=== PATIENT | male | born 1940 | race Caucasian/White ===

== ENCOUNTER 2016-08-11 06:19 | Day surgery (SDC) | payer MEDICARE, BC ==
--- NOTE | ~2016-08-11 | OP ---
Record Of Operation [facility] [address] [place]. [address] NAME: VINICIUS HERCULES : 40 STATUS : REG [facility] PAT#: [id number] AGE: 76 ADM/REG DATE : 08/11/16 MR#: [id number] REPORT SERV DATE: 08/11/16 DICTATED BY: VEE TONY JR. DATE: 08/11/16 REPORT STATUS : Draft TRANSCRIBED BY: EMILIA DATE: 08/11/16 DATE OF PROCEDURE: 08/11/2016 PREOPERATIVE DIAGNOSES: Lung cancer, status post previous right upper lobectomy and left lower lobectomy with positive mediastinal lymph nodes, status post adjuvant chemotherapy, enlarging left paratracheal and subcarinal lymph nodes, rule out persistent disease. POSTOPERATIVE DIAGNOSIS: No evidence of malignancy. NAME OF OPERATION: Diagnostic and therapeutic bronchoscopy, endobronchial ultrasound with multiple fine-needle aspirations, erika stations 4L and 7. SURGEON: Vee Tony Jr., M.D. RESIDENT SURGEON: Travis Edmondson. ANESTHESIA: General endotracheal. FINDINGS: Patient noted to have no endobronchial lesions. The right upper lobe bronchial stump and left lower lobe bronchial stump were well healed. On endobronchial ultrasound, there were benign appearing lymph nodes in the left paratracheal and subcarinal regions. Multiple fine-needle aspirations demonstrated benign lymphocytes. There was no evidence of malignant cells. Final pathology is pending. DETAILS OF OPERATION: After adequate general anesthesia, the patient was intubated with an LMA. Diagnostic therapeutic bronchoscopy was performed with the above findings noted. Endobronchial ultrasound was then performed with ultrasound portion demonstrating large but benign appearing architecture of the nodes in the left paratracheal and subcarinal space. Multiple fine-needle aspirations were performed, confirmed benign lymphocytes. Final pathology is pending. Adequate hemostasis was obtained. The procedure was terminated at this point. The patient tolerated the procedure well and taken back to the recovery room in stable condition. ERICA/EMILIA Vee Tony Jr., M.D. / [id number] CC: Alan Higuera Jr., M.D. Karson Murguia MD
[~2016-08-11 06:19] MED LIST: ATEN25 PO; FLOMAX4 PO; IBU800 PO; L10 PO; LEVOTHYROXIN25 MCG PO; LIBRAX PO; LIPOTRIAD1 CAP PO; METPAKSF PO; NEXIUM40 PO; NIACIN100 PO; PCET PO; RAPAFLO8 MG PO; SURBEX-T1 TAB PO; UNISOM25 MG PO; VITAMIN D31000 UNIT PO
[2016-08-11 06:41] LABS: BASOPHILS 0.3 %; BASOPHILS ABSOLUTE 0.02 10/3/uL (0.0-0.16); EOSINOPHILS 8.7 %; EOSINOPHILS ABSOLUTE 0.55 10/3/uL (0.0-0.53); HEMATOCRIT 40.2 % (40.0-51.0); HEMOGLOBIN 13.1 g/dL (13.6-17.8); IMMATURE GRANULOCYTES 0.2 %; IMMATURE GRANULOCYTES ABSOLUTE 0.01 10/3/uL (0.0-0.11); LYMPHOCYTES 34.8 %; MEAN CORPUS HGB CONC 32.6 g/dL (32.0-36.0); MEAN CORPUSCULAR HEMOGLOB 33.2 pg (26.0-34.0); MEAN PLATELET VOLUME 8.9 fL (9.2-13.0); MONOCYTES 7.1 %; MONOCYTES ABSOLUTE 0.45 10/3/uL (0.21-1.20); NEUTROPHILS 48.9 %; PLATELET COUNT 161 10/3/uL (150-400); RBC DISTRIBUTION WIDTH 13.5 % (12.0-16.0); RED CELL COUNT 3.95 10/6/uL (4.7-6.1); WHITE BLOOD CELLS 6.3 10/3/uL (4.5-10.5)
[2016-08-11 06:42] LABS: MANUAL DIFF NO %; MEAN CORPUSCULAR VOLUME 101.8 fL (80-100)
[2016-08-11 06:52] LABS: BUN (BLOOD UREA NITROGEN) 19 MG/DL (6-23); CALCIUM, SERUM 8.5 MG/DL (8.5-10.4); CHLORIDE, SERUM 107 MMOL/L (96-112); CO2 (CARBON DIOXIDE) 28 MMOL/L (24-34); CREATININE 0.99 MG/DL (0.70-1.30); GFR AFRICAN AMERICAN 85 ML/MIN (>=60); GFR NON AFRICAN AMERICAN 74 ML/MIN (>=60); GLUCOSE, SERUM 100 MG/DL (60-99); POTASSIUM, SERUM 3.9 MMOL/L (3.5-5.3); SODIUM, SERUM 143 MMOL/L (135-148)
[2016-09-23] MEDS ORDERED: LIPOTRIAD1 CAP PO (09:17)
[2016-09-29] MEDS ORDERED: PCET PO (11:08)
[2016-09-29] MEDS ORDERED: NEUR100 PO (11:08)
== END 2016-08-11 23:59 | disposition home or self-care (01) ==
LOC: DMU 06:19
PROVIDERS: Anesthesiology; Thoracic Surgery (Cardiothoracic Vascular Surgery)
PROC: 07B74ZX Excision of Thorax Lymphatic, Percutaneous Endoscopic Approach, Diagnostic (ICD-10-PCS; principal; 2016-08-11 08:00)
DX: R59.9 Enlarged lymph nodes, unspecified (principal); I10 Essential (primary) hypertension; I48.91 Unspecified atrial fibrillation; E03.9 Hypothyroidism, unspecified; H91.93 Unspecified hearing loss, bilateral; K58.9 Irritable bowel syndrome, unspecified; K63.5 Polyp of colon; K57.90 Diverticulosis of intestine, part unspecified, without perforation or abscess without bleeding; K64.9 Unspecified hemorrhoids; M19.011 Primary osteoarthritis, right shoulder; Z85.118 Personal history of other malignant neoplasm of bronchus and lung; Z87.891 Personal history of nicotine dependence; Z92.21 Personal history of antineoplastic chemotherapy; Z96.1 Presence of intraocular lens; Z98.41 Cataract extraction status, right eye; Z98.42 Cataract extraction status, left eye; Z97.4 Presence of external hearing-aid; Z90.2 Acquired absence of lung [part of]; Z90.89 Acquired absence of other organs; Z98.890 Other specified postprocedural states; Z79.899 Other long term (current) drug therapy
CPT/HCPCS: 80048; 85025; 88172; 88173; 88305; 93005; A9270-GY; C1725; J2370; J2405; J2710; J3010

== ENCOUNTER 2016-08-30 11:55 | Emergency (ER) | payer MEDICARE, BC ==
[2016-08-30 11:09] LABS: BASOPHILS 0.2 %; BASOPHILS ABSOLUTE 0.02 10/3/uL (0.0-0.16); EOSINOPHILS 2.1 %; HEMOGLOBIN 12.4 g/dL (13.6-17.8); IMMATURE GRANULOCYTES 0.3 %; IMMATURE GRANULOCYTES ABSOLUTE 0.03 10/3/uL (0.0-0.11); LYMPHOCYTES 15.1 %; LYMPHOCYTES ABSOLUTE 1.46 10/3/uL (0.67-4.30); MEAN CORPUS HGB CONC 33.5 g/dL (32.0-36.0); MEAN CORPUSCULAR HEMOGLOB 32.5 pg (26.0-34.0); MEAN PLATELET VOLUME 9.1 fL (9.2-13.0); MONOCYTES 7.3 %; MONOCYTES ABSOLUTE 0.71 10/3/uL (0.21-1.20); NEUTROPHILS ABSOLUTE 7.25 10/3/uL (2.02-8.40); PLATELET COUNT 156 10/3/uL (150-400); RBC DISTRIBUTION WIDTH 12.7 % (12.0-16.0); RED CELL COUNT 3.81 10/6/uL (4.7-6.1)
[2016-08-30 11:10] LABS: MANUAL DIFF NO %; MEAN CORPUSCULAR VOLUME 97.1 fL (80-100); WHITE BLOOD CELLS 9.7 10/3/uL (4.5-10.5)
[2016-08-30 11:17] LABS: INTERNATIONAL NORMAL RATI 1.2 UNITS (-); PARTIAL THROMBO TIME 44.5 SEC (22.5-37.2); PROTIME (NOT ORD) 14.8 SEC (12.0-14.5)
[2016-08-30 11:22] LABS: BUN (BLOOD UREA NITROGEN) 20 MG/DL (6-23); CALCIUM, SERUM 8.8 MG/DL (8.5-10.4); CHEST PAIN PROFILE TAT 0 Hrs 18 Mins; CHLORIDE, SERUM 102 MMOL/L (96-112); CO2 (CARBON DIOXIDE) 27 MMOL/L (24-34); CREATININE 0.96 MG/DL (0.70-1.30); GFR AFRICAN AMERICAN 89 ML/MIN (>=60); GFR NON AFRICAN AMERICAN 76 ML/MIN (>=60); GLUCOSE, SERUM 98 MG/DL (60-99); POTASSIUM, SERUM 4.1 MMOL/L (3.5-5.3); SODIUM, SERUM 138 MMOL/L (135-148); TROPONIN I <0.02 NG/ML (<0.05)
[2016-09-23] MEDS ORDERED: LIPOTRIAD1 CAP PO (09:17)
[2016-09-29] MEDS ORDERED: PCET PO (11:08)
[2016-09-29] MEDS ORDERED: NEUR100 PO (11:08)
== END 2016-08-30 16:32 | disposition home or self-care (01) ==
LOC: ER 11:55
PROVIDERS: Emergency Medicine
DX: J90 Pleural effusion, not elsewhere classified (principal); C34.90 Malignant neoplasm of unspecified part of unspecified bronchus or lung; I10 Essential (primary) hypertension; K21.9 Gastro-esophageal reflux disease without esophagitis; Z87.891 Personal history of nicotine dependence; Z79.899 Other long term (current) drug therapy
CPT/HCPCS: 71010; 71275; 80048; 83735; 84484; 85025; 85610; 85730; 93005; 99285; Q9967

== ENCOUNTER 2016-10-07 15:41 | Inpatient (IN) | payer MEDICARE, BC ==
--- NOTE | ~2016-10-07 | DS ---
Discharge Summary [place] [id number] [place]. [address] NAME: VINICIUS HERCULES : 40 STATUS : DIS IN PAT#: [id number] AGE: 76 ADM/REG DATE : 10/07/16 MR#: [id number] REPORT SERV DATE: 10/09/16 DICTATED BY: TIBURCIO MATAMOROS DATE: 10/09/16 REPORT STATUS : Draft TRANSCRIBED BY: EMILIA DATE: 10/09/16 ADMISSION DATE: 10/07/2016 DISCHARGE DATE: 10/09/2016 DISCHARGE DIAGNOSES: 1. Symptomatic sick sinus syndrome, status post pacemaker, 10/08/2016. 2. Paroxysmal atrial fibrillation. 3. Lung cancer, status post lobectomy. 4. Hypertension. 5. Hypothyroidism. 6. Presyncope. 7. History of pleural effusion, recurrent, status post left PleurX cath. 8. Benign prostatic hyperplasia. DISCHARGE MEDICATIONS: Include, 1. Amiodarone 200 mg p.o. b.i.d. 2. Librax one cap p.o. b.i.d. 3. Vitamin D 2000 units p.o. daily. 4. Synthroid 25 mcg p.o. daily. 5. Lopressor 25 mg p.o. b.i.d. 6. Nexium 40 mg p.o. b.i.d. 7. Metamucil packet p.o. daily. 8. Xarelto 20 mg p.o. at supper, start 10/10/2016 at 1800 hours. 9. Flomax 0.4 mg in the evening. 10.Vitamin B complex cap one p.o. daily. 11.Ultram 50 mg one tab p.o. q.6 hours p.r.n. 12.Percocet 5/325 tab p.o. q.4 hours p.r.n. DISPOSITION AND FOLLOWUP: The patient is medically stable for discharge. Follow up with primary care physician in one week. Follow up with Cardiology as directed. Follow up results of echo by Cardiology on an outpatient followup. HISTORY AND PHYSICAL: Per initial assessment. DISCHARGE VITALS: Temperature 97, heart rate 89, respiratory rate 18, blood pressure 113/77, O2 saturation 93 on room air. DISCHARGE LABS: WBC of 4.7, hemoglobin 12.3, hematocrit 36.6, platelets 231. Sodium 141, potassium 4.2, chloride 107, bicarb 26, BUN 15, creatinine 0.89, calcium 9, magnesium 2.1. IMAGING: Chest x-ray, impression: 1. Interval placement of left chest pacemaker device. No postprocedure pneumothorax seen. 2. Low lung volumes with mild bibasilar atelectasis and small left pleural fluid. 3. Right chest Port-A-Cath device and left PleurX chest tube in stable position. HOSPITAL COURSE: This is a 76-year-old man with past medical history of non-small cell lung Discharge Summary [address] [place]. 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 The patient on admission was found to have atrial fibrillation with multiple pauses up to 5 seconds associated with presyncope. The patient was evaluated by Cardiology, Electrophysiology, recommendations for pacemaker. The patient did have a pacemaker done, 10/08/2016. No complications. Placed on amiodarone and metoprolol and instructed to start Xarelto on 10/10/2016. Chest x-ray without any evidence of pneumothorax. The patient to get an echo prior to discharge. Instructed to take all medications as directed above. Followup with primary care physician in one week. Follow up with Cardiology as directed. Further management to be done as an outpatient. Note: Total time for discharge planning 35 minutes. BINU/EMILIA Charles Hollis MD / [id number] CC: SoAlan Garcia Jr., M.D.
--- NOTE | ~2016-10-07 | CN ---
Consultation Report [facility] [address] [place]. [address] NAME: VINICIUS HERCULES : 40 STATUS : ADM IN PAT#: [id number] AGE: 76 ADM/REG DATE : 10/07/16 MR#: [id number] REPORT SERV DATE: 10/08/16 DICTATED BY: WAQAS SAMANIEGO DATE: 10/07/16 REPORT STATUS : Draft TRANSCRIBED BY: MODKorina DATE: 10/07/16 CARDIOLOGY CONSULTATION DATE OF CONSULTATION: PRIMARY ENGINEER SERGEANT: Dr. Buck. REASON FOR CONSULTATION: Atrial fibrillation/flutter and near syncope. HISTORY PRESENT ILLNESS: Mr. Hercules is a 76-year-old male with neuroendocrine lung cancer, status post right upper lobectomy with Dr. Tony, x-ray therapy, chemotherapy, and a recent left PleurX catheter placement for a large pleural effusion who presented to the ER with three episodes of near syncope earlier today. He states that he slept poorly last night and awoke this morning "in a fog." He took his morning atenolol. Shortly, thereafter, he started having episodes of near syncope where he describes a flushing sensation and transient vision changes before spontaneous resolution of the symptoms. Due to the recurrent episodes, he presented to the ER for further evaluation where he was found to be in atrial fibrillation/flutter, now rapid ventricular response at 115 beats per minute. While on telemetry monitoring during his evaluation, he would have several three to five second pauses. He was given IV fluids. Since then he has converted back to sinus rhythm at 85 beats per minutes and otherwise remains hemodynamically stable with no recurrent symptoms. He has had no recent chest pain/angina. Shortness of breath is at baseline and overall improved since his left PleurX catheter placement for left pleural effusion drainage. He denies orthopnea or PND. He has had no lower extremity edema. REVIEW OF SYSTEMS: Pertinent positives and negatives as outlined above, all was negative. PAST MEDICAL HISTORY: 1. Neuroendocrine lung cancer, status post lobectomy, x-ray therapy and chemotherapy. 2. Left pleural effusion, status post PleurX catheter. 3. History of atypical chest pain. 4. BPH. CURRENT MEDICATIONS: 1. Atenolol 25 mg daily. 2. Librax cap twice daily. 3. Vitamin B supplementation. 4. Vitamin B12 supplementation. 5. Percocet p.r.n. 6. Synthroid 25 mcg daily. 7. Nexium 40 mg twice daily. 8. Flomax 0.4 mg daily. Consultation Report [place] [address] [place]. [address] NAME: VINICIUS HERCULES : 40 STATUS : ADM IN PAT#: [id number] AGE: 76 ADM/REG DATE : 10/07/16 MR#: [id number] REPORT SERV DATE: 10/08/16 DICTATED BY: WAQAS SAMANIEGO DATE: 10/07/16 REPORT STATUS : Draft TRANSCRIBED BY: EMILIA DATE: 10/07/16 ALLERGIES: NO KNOWN DRUG ALLERGIES. SOCIAL HISTORY: He has a history of remote tobacco use. He does not consume alcohol or use illegal drugs. FAMILY HISTORY: No significant family history of premature CAD, unexplained cardiomyopathy, or sudden . PHYSICAL EXAMINATION: VITALS: Temp afebrile, Pulse is 85, Respirations 16, BP 110/60. GENERAL: PSYCH: Euthymic, normal affect. GENERAL: Well-developed male who is currently in no acute distress. HEENT: Sclerae anicteric, mucous membranes moist and without lesions. NECK: No jugular venous distention. No hepatojugular reflux, carotid upstrokes 2+ and symmetric, there are no carotid or subclavian bruit. LUNGS: Mildly decreased breath sounds throughout, more notable at the left base, with no wheezes or crackles. CARDIOVASCULAR: Regular with distant S1 and S2. No audible S3. No audible murmurs. No parasternal lift. PMI is not palpable. ABDOMEN: Obese, soft, and nontender. Bowel sounds positive and normoactive. PULSES: Radial and dorsalis pedis pulses 2+ and symmetric. EXTREMITIES: Warm and without edema. SKIN: No clubbing or cyanosis, no rashes or lesions. IMPRESSION: 1. Near syncope. 2. Sick sinus syndrome. 3. Atrial fibrillation/flutter with rapid ventricular response. 4. Neuroendocrine lung cancer, status post lobectomy, XRT, and chemotherapy. 5. Pleural effusion status post left PleurX catheter. PLAN: Mr. Hercules presented with symptoms of near syncope in the setting of atrial fibrillation, RVR, and pauses of three to five seconds following morning atenolol dose. He is now back in sinus rhythm after IV fluids and hemodynamically stable. Recommend telemetry for admission at this time. Keep n.p.o. after midnight and hold a.m. Eliquis for EP evaluation and questionable permanent pacemaker placement tomorrow. Echocardiogram to assess LV function and cardiac dimensions. Continue other home medications as prescribed. Critical care medicine has been made aware, and he will be transferred to the floor for recurrent arrhythmias. AEA/MODL Consultation Report [address] [place]. [address] NAME: VINICIUS HERCULES : 40 STATUS : ADM IN [facility]#: [id number] AGE: 76 ADM/REG DATE : 10/07/16 MR#: [id number] REPORT SERV DATE: 10/08/16 DICTATED BY: WAQAS SAMANIEGO. DATE: 10/07/16 REPORT STATUS : Draft TRANSCRIBED BY: EMILIA DATE: 10/07/16 Waqas Samaniego M.D. / [id number] CC: Alan Ngo Jr., M.D.
--- NOTE | ~2016-10-07 | CN ---
Consultation Report [facility] [address] [place]. [address] NAME: CHRISTIANO HERCULES : 40 STATUS : ADM IN [facility]#: [id number] AGE: 76 ADM/REG DATE : 10/07/16 MR#: [id number] REPORT SERV DATE: 10/08/16 DICTATED BY: ARI LEVINE DATE: 10/08/16 REPORT STATUS : Draft TRANSCRIBED BY: EMILIA DATE: 10/08/16 CARDIOLOGY CONSULTATION DATE OF CONSULTATION: REFERRING PROVIDER: Jf Buck M.D. INDICATIONS: Presyncope and sick sinus syndrome. HISTORY OF PRESENT ILLNESS: Mr. Christiano Hercules is a 76-year-old man with a history of non- small cell lung cancer reported as adenocarcinoma and neuroendocrine carcinoma. He had issues with recurrent left pleural effusion and has a PleurX drain. He had multiple presyncopal events yesterday and presented to the emergency room. He was found to have atrial fibrillation with multiple pauses up to 5 seconds associated with presyncope. He subsequently reverted back to sinus rhythm. Electrophysiology is consulted. He denies chest pain. He does have some chronic shortness of breath. No active orthopnea or PND. He has had several liters drained from his left chest. PAST MEDICAL HISTORY: Lung carcinoma, BPH, hypertension, hypothyroidism. PRESENT MEDICATIONS: Librax, vitamin D, Synthroid, Protonix, psyllium, Flomax, B complex vitamin. The patient was receiving a heparin infusion overnight, heparin stopped 07:00 a.m. this morning. ALLERGIES: NONE KNOWN. FAMILY HISTORY: Notable for siblings with malignancy. SOCIAL HISTORY: , two children, and quit smoking in 2003, but a long smoking history. 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 REVIEW OF SYSTEMS: As per the HPI. Otherwise, all other review of systems negative. PHYSICAL EXAMINATION: VITAL SIGNS: Blood pressure 114/67, pulse 90, respiratory rate is 14. GENERAL: Appears stated age, no distress. EYES: Sclerae anicteric, no arcus senilis. MOUTH: Oral mucosa moist, lips acyanotic. NECK: Jugular venous pressure normal, no carotid bruits. LUNGS: Diminished breath sounds in the left base. CARDIAC: Regular rate and rhythm, no murmurs, gallops or rubs. ABDOMEN: Soft, nondistended, nontender. EXTREMITIES: No edema. Consultation Report [facility] [address] [place]. [address] NAME: CHRISTIANO HERCULES : 40 STATUS : ADM IN PAT#: [id number] AGE: 76 ADM/REG DATE : 10/07/16 MR#: [id number] REPORT SERV DATE: 10/08/16 DICTATED BY: ARI LEVINE DATE: 10/08/16 REPORT STATUS : Draft TRANSCRIBED BY: EMILIA DATE: 10/08/16 SKIN: Warm and dry. Right chest Port-A-Cath. NEURO/PSYCH: Alert and oriented, nonfocal, mood appropriate. DATA: Sodium 141, potassium 4.2, creatinine 0.8. White count 4.7, hemoglobin 12.3, platelets 260. Troponin negative x3. TSH 2.5. ECG demonstrates atrial fibrillation, ventricular response, 114 beats per minute. Telemetry demonstrates atrial fibrillation with pauses up to 5 seconds. IMPRESSION: 1. Marked presyncope. 2. Symptomatic sick sinus syndrome. 3. Paroxysmal atrial fibrillation. 4. Lung cancer. 5. Hypertension. 6. Hypothyroidism with normal TSH. RECOMMENDATIONS: Discussed situation with the patient and family. The patient will need implantation of a dual-chamber pacemaker. I have discussed with them the rationale, logistics, and risks of the procedure. Risks include, but not limited to bleeding, infection, vascular complications, myocardial infarction, stroke, failure to place lead, lead dislodgement, pneumothorax. We would consider oral anticoagulation to begin two days after pacemaker implanted. Resume beta bren after pacemaker implanted. NAOMI/EMILIA Ari Levine M.D. / [id number] CC: Alan Ngo Jr., M.D.
--- NOTE | ~2016-10-07 | HP ---
History And Physical [facility] [address] [place]. [address] NAME: VINICIUS HERCULES : 40 STATUS : ADM IN [facility]#: [id number] AGE: 76 ADM/REG DATE : 10/07/16 MR#: [id number] REPORT SERV DATE: 10/07/16 DICTATED BY: JOANNA GRAVES DATE: 10/07/16 REPORT STATUS : Draft TRANSCRIBED BY: MODL DATE: 10/07/16 DATE OF ADMISSION: 10/07/2016 HISTORY OF PRESENT ILLNESS: The patient is a very pleasant 76-year-old male who presented to [facility] after he had several syncopal/presyncopal episodes, started with dizziness and accompanied with hypotension. He had them this morning. reported that at least 15 episodes he had, and on presentation his blood pressure was 86/61, heart rate is 110. He was dizzy and presyncopal. The patient never had similar episodes before. He had this episode since last night and a sensation of being hot accompanied these episodes with some palpitations, and telemetry strip showed pauses up to two to three seconds, and the patient was evaluated in the emergency room by Dr. Bianchi, and he was given normal saline bolus in the emergency room and his blood pressure improved to 110/70, as well as his telemetry improved. Initially, Dr. Bianchi spoke with pigment pusher on-call and they sent a nurse practitioner, and they recommended to keep pacer pads on, this is what Dr. Bianchi told me, and then in conversation with me because of the significant pauses, Dr. Bianchi and me agreed that the patient will need to be in the intensive care unit since there were no IMCU beds. Later on, pigment pusher came to evaluate the patient and since patient became stable and blood pressure was 110/70, and Dr. Sheets okayed patient to be sent to telemetry bed with close supervision, and so he saw the patient even before me seeing the patient and he was okay with telemetry bed. He also recommended the patient to be on a heparin drip and an IV fluid bolus to be given to the patient. The patient now is feeling better. He denies chest pain or shortness of breath. He is not dizzy. PAST MEDICAL HISTORY: Known for history of lung cancer on the left lung, status post lower lobe resection per Dr. Tony, status post chemotherapy and status post radiation therapy, which he completed on 09/27/2016. He also has history of lung cancer on the left lung. In 2004, he had a right upper lobe resection for the lung cancer. Also, the patient has a chronic draining catheter/chest tube, which was placed for recurrent pleural effusion on the right side on the left side per Dr. Tony. The patient also had recent lymph node biopsy per Dr. Tony on the same patient and the lymph node biopsy was negative. The patient denies any other medical problems. He denies any heart problems in the past. No diabetes. REVIEW OF SYSTEMS: All 14-point review of systems done and negative except for what is stated in the history of present illness. PAST SURGICAL HISTORY: Includes this lung surgery and hernia repair, and recent lymph node biopsy by Dr. Tony. HOME MEDICATIONS: Include Tenormin 25 mg a day, Librax one capsule b.i.d., vitamin D3 2000 units daily, Nexium 40 mg daily, levothyroxine 25 mcg a day, oxycodone with acetaminophen one tablet p.o. q.4 hours p.r.n., Metamucil one packet p.o. daily, Flomax 0.4 mg daily, and vitamin B once a day. FAMILY HISTORY: Mother of ovarian cancer. Father from congestive heart failure. History And Physical [address] [address] NAME: VINICIUS HERCULES : 40 STATUS : ADM IN [facility]#: [id number] AGE: 76 ADM/REG DATE : 10/07/16 MR#: [id number] REPORT SERV DATE: 10/07/16 DICTATED BY: JOANNA GRAVES DATE: 10/07/16 REPORT STATUS : Draft TRANSCRIBED BY: EMILIA DATE: 10/07/16 ALLERGIES: NO KNOWN DRUG ALLERGY. SOCIAL HISTORY: He quit smoking in 2003, used to smoke one and a half pack per day. No alcohol. No recreational drug use. PHYSICAL EXAMINATION: GENERAL: A well-nourished, well-developed male, not in acute distress, resting quietly. VITAL SIGNS: Blood pressure 110/70, heart rate in 80s, respiratory rate 14, oxygen saturation was 97 on room air, temperature 97.2. HEENT: Head atraumatic, normocephalic. Conjunctivae clear. Pupils are equal and reactive to light and accommodation. Extraocular muscles are intact. NECK: Supple. Trachea is midline. No supraclavicular or cervical lymphadenopathy. LUNGS: Clear to auscultation bilaterally with slightly decreased respiratory effort. CARDIOVASCULAR: Regular rate and rhythm. Point of maximal impulse not displaced. ABDOMEN: Soft, nontender, nondistended. Positive normoactive bowel sounds. EXTREMITIES: No clubbing, cyanosis, or edema. SKIN: Normal color and turgor. NEUROLOGICAL: He is awake, alert, oriented in time, place, and person. Muscle strength 5/5 bilaterally on upper and lower extremities. LABORATORY RESULTS: White count 4.9, hemoglobin 12.9, hematocrit 38.5, platelet count 289. PTT 37.4, PT 15, INR 1.2. BNP 137.4. Sodium 140, potassium 4.4, chloride 104, carbon dioxide 30, BUN 20, creatinine 1.03. Troponin less than 0.02. Magnesium is 2. Blood sugar 95. BNP was 137.4. Chest x-ray, there are left chest tubes in place with minimal pleural effusion. No significant pneumothorax identified. EKG which was done on 10/07/2016 at 1414 in the emergency room showed atrial flutter with variable AV block with premature ventricular and aberrantly controlled complexes. Telemetry strips show two-second pauses on the telemetry strip, which subsequently resolved, and the patient was in normal sinus rhythm subsequently. This was evaluated by pigment pusher, Dr. Sheets. ASSESSMENT AND PLAN: This is a very pleasant 76-year-old male with a history of lung cancer, status post recent radiation therapy presented with a presyncopal episode and pauses on the telemetry strip. The patient was evaluated by pigment pusher, Dr. Sheets and there was a question if the patient needs to be in the intensive care unit or on the floor. Dr. Sheets after evaluation of the patient decided that the patient will be okay on telemetry bed and discussed this with me, so we will follow Dr. Sheets's recommendations and put the patient on telemetry. We will request [address] Sheets wrote orders to put the patient on heparin drip and give him IV fluid boluses. We will also give him gentle IV fluid hydration. Echocardiogram is ordered. Beta bren discontinued. Patient's troponins will be checked periodically. He is now asymptomatic. The patient will be n.p.o. after midnight and the pigment pusher will give further recommendations. We will also check the patient's TSH. Regarding patient's chest tube which was placed per recommendation of Dr. Tony, we will Dr. Tony to re-evaluate the chest tube. Everything was discussed with the patient and his . History And Physical [address] [address] NAME: VINICIUS HERCULES : 40 STATUS : ADM IN [facility]#: [id number] AGE: 76 ADM/REG DATE : 10/07/16 MR#: [id number] REPORT SERV DATE: 10/07/16 DICTATED BY: JOANNA GRAVES DATE: 10/07/16 REPORT STATUS : Draft TRANSCRIBED BY: MODKorina DATE: 10/07/16 MG/MODKorina Joanna Graves M.D. / [id number] CC: Alna Ngo Jr., M.D. Allen E Atchley, M.D.
[2016-10-07 15:34] LABS: BASOPHILS 0.6 %; BASOPHILS ABSOLUTE 0.03 10/3/uL (0.0-0.16); EOSINOPHILS 4.3 %; EOSINOPHILS ABSOLUTE 0.21 10/3/uL (0.0-0.53); HEMATOCRIT 38.5 % (40.0-51.0); HEMOGLOBIN 12.9 g/dL (13.6-17.8); IMMATURE GRANULOCYTES 0.2 %; IMMATURE GRANULOCYTES ABSOLUTE 0.01 10/3/uL (0.0-0.11); LYMPHOCYTES 13.5 %; LYMPHOCYTES ABSOLUTE 0.66 10/3/uL (0.67-4.30); MEAN CORPUS HGB CONC 33.5 g/dL (32.0-36.0); MEAN CORPUSCULAR HEMOGLOB 30.5 pg (26.0-34.0); MEAN PLATELET VOLUME 8.8 fL (9.2-13.0); MONOCYTES 12.9 %; MONOCYTES ABSOLUTE 0.63 10/3/uL (0.21-1.20); NEUTROPHILS 68.5 %; NEUTROPHILS ABSOLUTE 3.36 10/3/uL (2.02-8.40); PLATELET COUNT 289 10/3/uL (150-400); RBC DISTRIBUTION WIDTH 13.1 % (12.0-16.0); RED CELL COUNT 4.23 10/6/uL (4.7-6.1)
[2016-10-07 15:35] LABS: ER CBC TAT 0 Hrs 05 Mins; MANUAL DIFF NO %; WHITE BLOOD CELLS 4.9 10/3/uL (4.5-10.5)
[2016-10-07 15:41] LABS: PARTIAL THROMBO TIME 37.4 SEC (22.5-37.2)
[~2016-10-07 15:41] MED LIST changes: +NEUR100 PO
[2016-10-07 15:42] LABS: INTERNATIONAL NORMAL RATI 1.2 UNITS (-)
[2016-10-07 15:50] LABS: BUN (BLOOD UREA NITROGEN) 20 MG/DL (6-23); CALCIUM, SERUM 9.2 MG/DL (8.5-10.4); CHEST PAIN PROFILE TAT 0 Hrs 20 Mins; CHLORIDE, SERUM 104 MMOL/L (96-112); CO2 (CARBON DIOXIDE) 30 MMOL/L (24-34); CREATININE 1.03 MG/DL (0.70-1.30); GFR AFRICAN AMERICAN 81 ML/MIN (>=60); GFR NON AFRICAN AMERICAN 70 ML/MIN (>=60); GLUCOSE, SERUM 95 MG/DL (60-99); POTASSIUM, SERUM 4.4 MMOL/L (3.5-5.3); SODIUM, SERUM 140 MMOL/L (135-148); TROPONIN I <0.02 NG/ML (<0.05)
[2016-10-07] MEDS ORDERED: FLOMAX4 PO (17:02)
[2016-10-07] MEDS ORDERED: PCET PO (17:02)
[2016-10-07] MEDS ORDERED: NEXIUM40 PO (17:02)
[2016-10-07] MEDS ORDERED: LEVOTHYROXIN25 MCG PO (17:02)
[2016-10-07] MEDS ORDERED: ATEN25 PO (17:02)
[2016-10-07] MEDS ORDERED: VITAMIN D31000 UNIT PO (17:03)
[2016-10-07] MEDS ORDERED: METPAKSF PO (17:03)
[2016-10-07] MEDS ORDERED: LIBRAX PO (17:03)
[2016-10-07] MEDS ORDERED: LIPOTRIAD1 CAP PO (17:03)
[2016-10-08 01:29] LABS: BASOPHILS 0.4 %; BASOPHILS ABSOLUTE 0.02 10/3/uL (0.0-0.16); EOSINOPHILS ABSOLUTE 0.28 10/3/uL (0.0-0.53); HEMATOCRIT 37.2 % (40.0-51.0); HEMOGLOBIN 12.3 g/dL (13.6-17.8); IMMATURE GRANULOCYTES 0.4 %; IMMATURE GRANULOCYTES ABSOLUTE 0.02 10/3/uL (0.0-0.11); LYMPHOCYTES 13.6 %; LYMPHOCYTES ABSOLUTE 0.64 10/3/uL (0.67-4.30); MANUAL DIFF NO %; MEAN CORPUS HGB CONC 33.1 g/dL (32.0-36.0); MEAN CORPUSCULAR HEMOGLOB 30.8 pg (26.0-34.0); MEAN CORPUSCULAR VOLUME 93.2 fL (80-100); MEAN PLATELET VOLUME 8.9 fL (9.2-13.0); MONOCYTES 12.4 %; MONOCYTES ABSOLUTE 0.58 10/3/uL (0.21-1.20); NEUTROPHILS 67.2 %; NEUTROPHILS ABSOLUTE 3.15 10/3/uL (2.02-8.40); PLATELET COUNT 260 10/3/uL (150-400); RBC DISTRIBUTION WIDTH 12.8 % (12.0-16.0); RED CELL COUNT 3.99 10/6/uL (4.7-6.1); WHITE BLOOD CELLS 4.7 10/3/uL (4.5-10.5)
[2016-10-08 01:45] LABS: CALCIUM, SERUM 9.2 MG/DL (8.5-10.4); CHLORIDE, SERUM 108 MMOL/L (96-112); CO2 (CARBON DIOXIDE) 30 MMOL/L (24-34); CREATININE 0.88 MG/DL (0.70-1.30); GFR AFRICAN AMERICAN 97 ML/MIN (>=60); GFR NON AFRICAN AMERICAN 83 ML/MIN (>=60); GLUCOSE, SERUM 100 MG/DL (60-99); POTASSIUM, SERUM 4.2 MMOL/L (3.5-5.3); SODIUM, SERUM 141 MMOL/L (135-148)
[2016-10-08 01:47] LABS: BUN (BLOOD UREA NITROGEN) 16 MG/DL (6-23)
[2016-10-08 07:26] LABS: PARTIAL THROMBO TIME 95.7 SEC (22.5-37.2)
[2016-10-08 10:51] LABS: INTERNATIONAL NORMAL RATI 1.3 UNITS (-); PROTIME (NOT ORD) 16.3 SEC (12.0-14.5)
[2016-10-09 06:21] LABS: BASOPHILS 0.6 %; BASOPHILS ABSOLUTE 0.03 10/3/uL (0.0-0.16); EOSINOPHILS 3.6 %; EOSINOPHILS ABSOLUTE 0.17 10/3/uL (0.0-0.53); HEMATOCRIT 36.6 % (40.0-51.0); HEMOGLOBIN 12.3 g/dL (13.6-17.8); IMMATURE GRANULOCYTES 0.2 %; IMMATURE GRANULOCYTES ABSOLUTE 0.01 10/3/uL (0.0-0.11); LYMPHOCYTES 12.1 %; LYMPHOCYTES ABSOLUTE 0.57 10/3/uL (0.67-4.30); MANUAL DIFF NO %; MEAN CORPUS HGB CONC 33.6 g/dL (32.0-36.0); MEAN CORPUSCULAR HEMOGLOB 30.3 pg (26.0-34.0); MEAN CORPUSCULAR VOLUME 90.1 fL (80-100); MEAN PLATELET VOLUME 8.8 fL (9.2-13.0); MONOCYTES 12.7 %; NEUTROPHILS 70.8 %; NEUTROPHILS ABSOLUTE 3.35 10/3/uL (2.02-8.40); PLATELET COUNT 231 10/3/uL (150-400); RBC DISTRIBUTION WIDTH 13.1 % (12.0-16.0); RED CELL COUNT 4.06 10/6/uL (4.7-6.1); WHITE BLOOD CELLS 4.7 10/3/uL (4.5-10.5)
[2016-10-09 06:32] LABS: BUN (BLOOD UREA NITROGEN) 15 MG/DL (6-23); CHLORIDE, SERUM 107 MMOL/L (96-112); CO2 (CARBON DIOXIDE) 26 MMOL/L (24-34); CREATININE 0.89 MG/DL (0.70-1.30); GFR AFRICAN AMERICAN 96 ML/MIN (>=60); GFR NON AFRICAN AMERICAN 83 ML/MIN (>=60); GLUCOSE, SERUM 104 MG/DL (60-99); POTASSIUM, SERUM 4.2 MMOL/L (3.5-5.3); SODIUM, SERUM 141 MMOL/L (135-148)
[2016-10-09] MEDS ORDERED: CORDARONE PO (11:30)
[2016-10-09] MEDS ORDERED: LOP25 PO (11:30)
[2016-10-09] MEDS ORDERED: XARELTO20 MG PO (11:31)
[2016-10-09] MEDS ORDERED: ULTRAM50 PO (11:32)
== END 2016-10-09 13:46 | disposition home or self-care (01) | DRG 243 ==
LOC: ER 15:41 → 5NO 18:45
PROVIDERS: Emergency Medicine; Hospitalist; Internal Medicine
PROC: 0JH606Z Insertion of Pacemaker, Dual Chamber into Chest Subcutaneous Tissue and Fascia, Open Approach (ICD-10-PCS; principal; 2016-10-08)
PROC: 02H63JZ Insertion of Pacemaker Lead into Right Atrium, Percutaneous Approach (ICD-10-PCS; 2016-10-08)
PROC: 02HK3JZ Insertion of Pacemaker Lead into Right Ventricle, Percutaneous Approach (ICD-10-PCS; 2016-10-08)
DX: I49.5 Sick sinus syndrome (principal); I48.92 Unspecified atrial flutter; J90 Pleural effusion, not elsewhere classified; I48.0 Paroxysmal atrial fibrillation; I10 Essential (primary) hypertension; Z85.118 Personal history of other malignant neoplasm of bronchus and lung; E03.9 Hypothyroidism, unspecified; N40.0 Benign prostatic hyperplasia without lower urinary tract symptoms; K21.9 Gastro-esophageal reflux disease without esophagitis
CPT/HCPCS: 33208; 36415; 71010; 80048; 83735; 83880; 84443; 84484; 85025; 85610; 85730; 93005; 94640; 99285; A9270-GY; C1785; C1892; C1898; C8929; J0690; J1742; J2370; J3010; Q9957

== ENCOUNTER 2016-11-02 16:55 | Inpatient (IN) | payer MEDICARE, BC ==
--- NOTE | ~2016-11-02 | DS ---
Discharge Summary [facility] [address] [place]. [address] NAME: VINICIUS HERCULES : 40 STATUS : DIS IN PAT#: [id number] AGE: 76 ADM/REG DATE : 11/02/16 MR#: [id number] REPORT SERV DATE: 11/09/16 DICTATED BY: JEANETTE BOCANEGRA DATE: 11/08/16 REPORT STATUS : Draft TRANSCRIBED BY: MODL DATE: 11/08/16 ADMISSION DATE: 11/02/2016 DISCHARGE DATE: 11/08/2016 ADMISSION DIAGNOSES: Shortness of breath, hypoxemic, healthcare-associated pneumonia, recurrent pleural effusions with paroxysmal atrial fibrillation. DISCHARGE DIAGNOSES: Shortness of breath, hypoxemic, healthcare-associated pneumonia, recurrent pleural effusions with paroxysmal atrial fibrillation, , acute kidney injury, squamous cell lung cancer, acute hypercapnic respiratory failure. HOSPITAL COURSE: The patient was admitted for acute hypoxic respiratory failure thought to be underlying pneumonia. However, the patient had a CT scan, for which Pulmonary Consult Service saw the patient on the 11/03/2016 and the patient is noted to have a history of non- small cell lung cancer in the right upper lobe and is already noted to have a left lower lobe lobectomy. He had progressive ground-glass opacities, for which pneumonia did not seem to clear these infiltrates. There was concern of radiation pneumonitis. However, the patient eventually underwent bronchoscopy for further diagnostic workup and the pathology results shows negative bronchial brushings and lavage. However, the transbronchial lung biopsies are still pending. Upon my arrival today, on 11/08/2016, the patient was already in comfort measures. Again, prior to my arrival, in discussion with the family and staff, it was felt that the patient would not want aggressive life support and was converted to comfort care. It is thought that he may have lymphangitic spread of cancer and hence why antibiotics and steroids were not resolving the infiltrates and hypoxic respiratory failure. The whole family was at the bedside during morning rounds. DISPOSITION: secondary to most likely underlying progressive pulmonary non-small cell lung cancer. DICTATED BY: MD ALIRIO Meier/EMILIA Jeanette Bocanegra MD / [id number] CC: Alan Thomas M.D.
--- NOTE | ~2016-11-02 | CN ---
Consultation Report [facility] [address] [place]. [address] NAME: VINICIUS HERCULES : 40 STATUS : ADM IN PAT#: [id number] AGE: 76 ADM/REG DATE : 11/02/16 MR#: [id number] REPORT SERV DATE: 11/03/16 DICTATED BY: JANIS OSBORN DATE: 11/03/16 REPORT STATUS : Draft TRANSCRIBED BY: MODL DATE: 11/03/16 PULMONARY CONSULTATION DATE OF CONSULTATION: 11/03/2016 REASON FOR CONSULTATION: Abnormal CT scan of the chest. HISTORY OF PRESENT ILLNESS: Mr. Hercules is a 76-year-old white male, former smoker, with a history of a left lower lobectomy secondary to adenocarcinoma and a right upper lobectomy secondary to non-small cell carcinoma of the lung. He was treated with chemo and SBRT post left lower lobectomy. He also has a history of a PleurX catheter secondary to a left pleural effusion with the outputs from that PleurX catheter now at approximately 25 mL every Tuesday, Tuesday, and Tuesday. He was admitted when his home health nurse noted him to have low blood pressure and found him to be hypoxic. As part of his inpatient workup, he had a CT angiogram of the chest that was significant for diffuse ground-glass opacities, so Pulmonary was consulted. The patient is complaining of ongoing weakness and poor appetite since his diagnosis of adenocarcinoma in the left lower lobe approximately 6 to 7 months ago. He also has noted a dry cough for the past one week. He denies fever, chills, night sweats, hemoptysis, or chest pain. He has a history of atrial fibrillation and previous asystole. He has been on amiodarone for approximately one month. With regard to his previous cancer diagnosis, he was treated with lobectomies as noted. He did complete SBRT approximately 6 to 7 months ago. Since admission, he has been treated for presumed pneumonia and COPD with minimal improvement in his symptoms. He has been on vancomycin and Maxipime as well as Solu-Medrol, Brovana, Pulmicort, and DuoNeb. PAST MEDICAL HISTORY: 1. 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 2. Former smoker. 3. Restrictive lung disease. 4. Pulmonary function testing done on 03/26/2016, consistent with restriction and small airways obstruction. 5. Left pleural effusion with PleurX catheter. 6. Atrial fibrillation. 7. Pacemaker secondary to sick sinus syndrome. 8. Hypothyroidism. 9. Hypertension. 10.Previous inguinal hernia repair. Consultation Report [place] [address] [place]. [address] NAME: VINICIUS HERCULES : 40 STATUS : ADM IN [facility]#: [id number] AGE: 76 ADM/REG DATE : 11/02/16 MR#: [id number] REPORT SERV DATE: 11/03/16 DICTATED BY: JANIS OSBORN DATE: 11/03/16 REPORT STATUS : Draft TRANSCRIBED BY: EMILIA DATE: 11/03/16 11.GERD. 12.Seasonal allergies. 13.Hyperlipidemia. 14.Colon polyps. FAMILY HISTORY: He denies a family history of pulmonary diseases. SOCIAL HISTORY: He smoked up to one and half packs of cigarettes per day from 6 years of age and quit approximately ten years ago-60 total years of smoking. He drinks alcohol on a regular basis-"a little." He denies chewing tobacco, or past/present drug use. He has a long history of asbestos and various chemical exposures in the distant past. He is and has three children. MEDICATIONS: Outpatient and inpatient medications were reviewed and are as documented in the record. He states he was on no outpatient pulmonary medications. ALLERGIES: HE DENIES MEDICATION ALLERGIES. REVIEW OF SYSTEMS: A 10-point system review was conducted and is remarkable for the symptoms as described in the history of present illness. PHYSICAL EXAMINATION: VITAL SIGNS: Temperature 97.0 degrees, heart rate 101, blood pressure 115/69, respiratory rate 20, and oxygen saturation 92% on supplemental oxygen at a flow rate of 2.5 L/minute. GENERAL: Pleasant white male. Alert, oriented, no apparent distress. Appears ill. HEENT: Normocephalic. Atraumatic. There is no scleral icterus. The conjunctivae are clear. The oropharynx is clear. NECK: Supple. No lymphadenopathy or JVD was noted. LUNGS: Diminished breath sounds at both bases. Good effort. The lungs are clear to auscultation bilaterally. HEART: Regular with tachycardia. No ectopy was noted. ABDOMEN: Soft. Nontender. Nondistended. There are normal bowel sounds in all four quadrants. BILATERAL EXTREMITIES: No clubbing, cyanosis, or edema. NEUROLOGICAL: A limited exam was conducted and was found to be nonfocal. SKIN: No rashes were noted. LABORATORY RESULTS: The labs were reviewed and are as documented in the record. Notable labs include a white blood cell count of 6.6. The procalcitonin is 0.05. The BNP is 76.4. IMAGING: Chest x-ray done this admission revealed bilateral lower lobe infiltrates. The CT angiogram done this admission revealed no pulmonary embolism but scattered ground- glass infiltrates throughout the lungs with a lower lobe predominance. These ground-glass Consultation Report [place] [id number] [facility] [place]. [address] NAME: VINICIUS HERCULES : 40 STATUS : ADM IN [facility]#: [id number] AGE: 76 ADM/REG DATE : 11/02/16 MR#: [id number] REPORT SERV DATE: 11/03/16 DICTATED BY: JANIS OSBORN DATE: 11/03/16 REPORT STATUS : Draft TRANSCRIBED BY: MODL DATE: 11/03/16 opacities have increased when compared with the CT scan done 08/2016. There is minimal left pleural effusion with a left PleurX catheter in place. ASSESSMENT AND PLAN: Mr. Hercules is a 76-year-old white male, former smoker, with a history of non-small cell lung cancer treated with right upper lobectomy and left lower lobectomy followed by chemotherapy and then SBRT. He is on amiodarone therapy as noted. He has new hypoxia and hypotension as well as progressive ground-glass opacities noted on CT scan of the chest. He is being treated empirically for pneumonia though there is no evidence of infection. Should be okay to discontinue his antibiotics. He possibly has radiation pneumonitis versus amiodarone toxicity versus other inflammatory condition. Amiodarone toxicity is less likely. Recommend continuing him on supplemental oxygen and bronchodilators as well as nebulized steroids. The systemic steroids could be weaned for now. Recommend bronchoscopy with BAL for diagnostic purposes. The patient does agree with the plan. This will be done per Dr. Reta Andre, interventional meat hanger. Recommend PleurX catheter drainage daily while the patient is an inpatient. As noted, the drainage has essentially resolved. The PleurX catheter is being managed by CT surgery who placed the catheter initially. Thank you very much for this consultation. Further recommendations to follow dependent on the results of the bronchoscopy and the patient's response to therapy. PS/MODL Janis Osborn M.D. / [id number] CC: Alan Thomas M.D.
--- NOTE | ~2016-11-02 | CONSULT ---
Radiation Oncology Consult [place] [id number] [facility] [place] [address] NAME: VINICIUS HERCULES : 40 STATUS : ADM IN PAT#: [id number] AGE: 76 ADM/REG DATE : 11/02/16 MR#: [id number] REPORT SERV DATE: 11/06/16 DICTATED BY: HERI MURGUIA DATE: 11/06/16 REPORT STATUS : Draft TRANSCRIBED BY: EMILIA DATE: 11/06/16 RADIATION ONCOLOGY CONSULTATION DIAGNOSIS: Stage IIIA, T2a, N2, M0 left lower lobe adenocarcinoma. PREVIOUS TREATMENT: Left lower lobectomy, followed by adjuvant chemotherapy, followed by adjuvant radiation to 50.4 Gy. DATE OF COMPLETION: 10/04/2016. INTERVAL HISTORY: Mr. Hercules is a delightful 76-year-old male with past medical history significant for stage IIA large cell neuroendocrine carcinoma, status post right upper lobectomy. He re-presented with a new left lower lobe abnormality and underwent resection. He was found to have mediastinal involvement with level 9 lymph nodes. He underwent adjuvant carboplatin and Taxol, followed by consolidative radiation. This was completed one month ago on 10/04/2016. At the completion of his treatment, he had a PleurX catheter placed secondary to recurrent pleural effusion. Cytology was negative. He is admitted this week as he was found to be hypoxic and hypotensive. A CTA was performed, which noted diffuse ground-glass opacities, which were bilateral. This was concerning for possible pneumonitis. I am consulted to discuss potential radiation pneumonitis. At today's visit, the patient is admitted to the MICU and sedated. He has had progressive respiratory distress. He underwent a bronchoscopy with cultures pending. His reports that he had a fairly sudden decline. He has had no new symptoms per his including fevers, chills, night sweats, hemoptysis, chest pain, or dyspnea on exertion. PAST MEDICAL HISTORY: 1. 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 2. GERD. 3. Hyperlipidemia. 4. Hypertension. 5. Right upper lobectomy. 6. Left lower lobectomy. 7. Adjuvant carboplatin and Taxol. 8. Adjuvant radiation to 50.4 Gy. REVIEW OF SYSTEMS: Complete and extended review of system was performed. Pertinent positives noted in the HPI. MEDICATIONS: Medication reconciliation has been reviewed and discussed. Please refer to the EMR. ALLERGIES: NO KNOWN DRUG ALLERGIES. SOCIAL HISTORY: The patient is and lives with his . He has retired from the [employer] [address] [place]. [address] NAME: VINICIUS HERCULES : 40 STATUS : ADM IN PAT#: [id number] AGE: 76 ADM/REG DATE : 11/02/16 MR#: [id number] REPORT SERV DATE: 11/06/16 DICTATED BY: HERI MURGUIA DATE: 11/06/16 REPORT STATUS : Draft TRANSCRIBED BY: EMILIA DATE: 11/06/16 [facility]. He smoked from age 6 to 60. He drinks two beers daily and denies illicit drug use. PHYSICAL EXAMINATION: ECOG performance status of 3. Pain score 0/10. VITAL SIGNS: Weight 208, height 5 feet 11 inches, afebrile. Remainder of vital signs documented in the MICU nursing. GENERAL: Well-developed, well-nourished male. Sedated and on ventilation. HEENT: Normocephalic. Moist mucous membranes. LYMPHATICS: No supraclavicular or cervical lymphadenopathy. LUNGS: Diminished breath sounds in both bases. No wheezing. GASTROINTESTINAL: Soft, nontender, and nondistended. EXTREMITIES: No edema. Normal range of motion. NEUROLOGIC: Limited exam. Unable to assess. IMAGING: I have personally reviewed the CTA which shows bilateral pulmonary infiltrates. This is of unclear etiology, but is not particularly isolated to the left lower lobe at the site of prior radiation. There is no evidence of new mass or concern for recurrent lung cancer. ASSESSMENT AND PLAN: A 76-year-old male with history of stage III left lower lobe non-small cell lung cancer, status post lobectomy, followed by adjuvant chemoradiation with carboplatin and Taxol, followed by adjuvant radiation. I have discussed the case with Pulmonology as well as the patient's . I discussed that while there is a small chance this could be radiation pneumonitis, this would be unlikely as the patient did not receive high-dose radiation. He also did not receive concurrent chemotherapy. Additionally, the infiltrates noted on the CTA bilateral, which would be slightly atypical for radiation pneumonitis. I will defer primary management to the primary team, but suspect the etiology would be unlikely to be radiation pneumonitis. I appreciate the opportunity to take part in this patient's care. Please call with questions. DINO/EMILIA Heri Murguia MD / [id number] CC: Alan Thomas M.D. James Headrick Jr., M.D. [facility] [address] [address] NAME: VINICIUS HERCULES : 40 STATUS : ADM IN PAT#: [id number] AGE: 76 ADM/REG DATE : 11/02/16 MR#: [id number] REPORT SERV DATE: 11/06/16 DICTATED BY: HERI MURGUIA DATE: 11/06/16 REPORT STATUS : Draft TRANSCRIBED BY: EMILIA DATE: 11/06/16 Alan Vallejo M.D.
--- NOTE | ~2016-11-02 | CN ---
Consultation Report [facility] [address] [place]. [address] NAME: VINICIUS HERCULES : 40 STATUS : ADM IN PAT#: [id number] AGE: 76 ADM/REG DATE : 11/02/16 MR#: [id number] REPORT SERV DATE: 11/05/16 DICTATED BY: FREDDIE BRYANT DATE: 11/04/16 REPORT STATUS : Draft TRANSCRIBED BY: MODL DATE: 11/04/16 CONSULTATION DATE OF CONSULTATION: 11/04/2016 PRIMARY FUND ACCOUNTING MANAGER: Jf Buck M.D. REASON FOR CONSULTATION: Cardiovascular history, AFib, recent pacemaker with amiodarone initiation. HISTORY OF PRESENT ILLNESS: Mr. Hercules is a 76-year-old gentleman, who is currently sedated and intubated, therefore all history is obtained by review of records and in speaking with medical staff/RN. The patient has a history of non-small cell carcinoma of the lung status post left lower lobe lobectomy and a right upper lobectomy with indwelling PleurX catheter. Home health nurse found him to be hypoxic and hypotensive approximately 2 to 3 days ago and advised him to come to the hospital. A CT scan of the chest demonstrated diffuse ground-glass opacities. The patient developed interval hypoxic respiratory failure, and was subsequently brought today. The plan as of now is to arrest him overnight on a ventilator and to extubate him tomorrow morning. There are no specific cardiac issues at this time, however, given that the patient was recently started on amiodarone for history of atrial fibrillation for which he underwent a pacemaker (as well as history of sick sinus syndrome), there is some concern that he may have amiodarone pneumonitis. No family is at the bedside to provide additional history at this time. PAST MEDICAL HISTORY: As above as well as hypothyroidism, hypertension, inguinal hernia repair, restrictive lung disease, former tobacco smoking, and chronic left pleural effusion with PleurX catheter. FAMILY HISTORY: Noncontributory for premature cardiovascular disease. SOCIAL HISTORY: Significant for tobacco smoking (60 years total), occasional drinking of alcohol. No current drug use. MEDICATIONS: Home medications were reviewed and are as documented in his chart. REVIEW OF SYSTEMS: Unable to obtain due to current clinical status of being intubated. PHYSICAL EXAMINATION: VITAL SIGNS: Pulse ranging from 120 to 130s (sinus rhythm, currently), blood pressure 111/50. GENERAL: Sedated, intubated, opens eyes to verbal cues. NEURO: Awake, alert and oriented x3; no focal deficits, appropriate mood. HEENT: Moist mucous membranes, anicteric sclerae, no nasal discharge. Consultation Report [place] [id number] [place]. [address] NAME: VINICIUS HERCULES : 40 STATUS : ADM IN PAT#: [id number] AGE: 76 ADM/REG DATE : 11/02/16 MR#: [id number] REPORT SERV DATE: 11/05/16 DICTATED BY: FREDDIE BRYANT DATE: 11/04/16 REPORT STATUS : Draft TRANSCRIBED BY: EMILIA DATE: 11/04/16 NECK: No JVD, no carotid bruit. RESPIRATORY: ET tube in place, transmitted breath sounds bilaterally, with diminished breath sounds at the right lower base and the left upper lung field. Otherwise, currently on ventilator. CARDIAC: Tachycardic occasional irregularity. Normal S1, S2. No obvious murmurs, rubs, or gallops. ABD: Soft, non-tender, non-distended, no rebound or guarding. EXT: No pitting edema, normal distal pulses. SKIN: Warm, dry and intact; no rash. PERTINENT TESTS FINDINGS: Potassium 4.0, creatinine 0.9, white blood cell count 13.1, hemoglobin 11.1, troponin less than 0.02 on admission. BNP 76 on admission. EKG on admission, with sinus rhythm and no ischemic changes. IMPRESSION AND PLAN: Mr. Hercules is a 76-year-old gentleman with extensive medical history as detailed above, who is now status post bronchoscopy for workup of hypoxic respiratory failure and diffuse ground-glass opacities of unclear etiology. Although less likely, I do believe that he would do well with holding of amiodarone at this time in the unlikely event that this is causing amiodarone pneumonitis. Continuation of metoprolol will be important as well as his anticoagulation with regard to his atrial fibrillation. Otherwise, I agree with cautious diuresis as you are doing, however, I do not believe he is clinically markedly hypervolemic at this time. Finally following up with bronchoscopy studies will be important as well as proceeding with plan for extubation tomorrow per Pulmonary with rest tonight on the ventilator. VR/MODL Freddie Bryant MD / [id number] CC: Shalom Givens M.D.
--- NOTE | ~2016-11-02 | HP ---
History And Physical [place] [id number] [facility] [place]. [address] NAME: VINICIUS HERCULES : 40 STATUS : ADM IN [facility]#: [id number] AGE: 76 ADM/REG DATE : 11/02/16 MR#: [id number] REPORT SERV DATE: 11/03/16 DICTATED BY: CHRISTOPH CORREIA DATE: 11/02/16 REPORT STATUS : Draft TRANSCRIBED BY: MODL DATE: 11/02/16 DATE OF ADMISSION: 11/02/2016 CHIEF COMPLAINT: Shortness of breath and dyspnea with exertion. HISTORY OF PRESENT ILLNESS: This is a 76-year-old male with a history of bilateral lung cancers, most recently on the left, with a chronic PleurX catheter in place on the left side, who has had left lower lobe lobectomy by Dr. Tony, had radiation post lobectomy and had been doing well. He reports that in the last week or so, he had been increasingly short of breath, he started having dyspnea with exertion, which progressively worsened to the point today he could not even get out of bed or cross the room without gasping for air. His home health nurse, who visited him today to drain his PleurX catheter, found his vitals to be abnormal. His blood pressure according to him was 89/56, his heart rate was all over the place, and his oxygen saturation was very low. She suggested that he go to the emergency room right away. In the emergency room, he had hypoxemia on an arterial blood gas and a chest x-ray done in the ER showed bilateral pulmonary infiltrates mainly in the mid and lower lung higgins. Hospitalist Service is asked to admit him for further evaluation and treatment. At the time of my evaluation, he denied any chest pain or palpitations. He had no orthopnea. He had a cough, which was essentially nonproductive, which he has had for about three weeks now. He denied any hemoptysis, night sweats, or weight loss. No history of recent loss of consciousness or falls. He has had presyncopal episodes in the past. No episodes of fever, chills, nausea, vomiting, or diarrhea recently. He denied any hematemesis, hematochezia, or hematuria. No other history of recent travel or exposures other than those mentioned above. His last radiation treatment was in June this year according to him. PAST MEDICAL HISTORY: Significant for history of bilateral lung cancer, status post right upper lobectomy and left lower lobectomy. He had recurrent pleural effusions on the left subsequent to all this and had a PleurX catheter placed as well. He does have a history of paroxysmal atrial fibrillation, has a pacemaker placed for sick sinus syndrome as well. He has hypothyroidism and hypertension. SOCIAL HISTORY: He has about 30 to 40 pack year history of smoking, although he quit many years ago. He has an occasional drink. Does not use any recreational drugs. 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 He worked in the [employer]. FAMILY HISTORY: Noncontributory. MEDICATIONS: His medications at home were reviewed by me in the chart today and reordered by me. REVIEW OF SYSTEMS: History And Physical [address] [address] NAME: VINICIUS HERCULES : 40 STATUS : ADM IN [facility]#: [id number] AGE: 76 ADM/REG DATE : 11/02/16 MR#: [id number] REPORT SERV DATE: 11/03/16 DICTATED BY: CHRISTOPH CORREIA DATE: 11/02/16 REPORT STATUS : Draft TRANSCRIBED BY: EMILIA DATE: 11/02/16 As in history of present illness. All other systems were reviewed in detail and quite unremarkable. PHYSICAL EXAMINATION: GENERAL: This is a very pleasant 76-year-old, not in any acute distress at the time of my evaluation. He is alert, awake, oriented to time, place, and person. HEENT: His pupils are equal, reacting to light and accommodating. External ocular muscles are intact. Membranes are moist and pink. Sclerae are nonicteric. NECK: Supple with no jugular venous distention, lymphadenopathy, or thyromegaly. LUNGS: Clear to the auscultation. There were no wheezes, rubs, or crackles. HEART: Heart sounds were regular with no murmurs, rubs, or gallops. ABDOMEN: Soft and nontender. Bowel sounds are present. EXTREMITIES: Showed no cyanosis, clubbing, or edema. NEUROLOGIC: Grossly intact. No focal deficits. Higher functions appeared intact. He was able to move all four extremities. VITAL SIGNS: His vital signs today showed a temperature of 98.6, pulse 92, respirations 20 a minute, blood pressure was 108/56, oxygen saturations were 97%, breathing 3 L of oxygen via nasal cannula. LABORATORY DATA: Reviewed on the sones system showed a pH of 7.48, pCO2 was 33, PO2 was 56, and bicarb was 23.7. This was on room air. His sodium was 139, potassium 3.7, chloride 104, and CO2 of 26. BUN was 15 with a creatinine of 0.85 and blood glucose was 94. His magnesium was 1.8 today. His troponin was 0.02 and BNP was 76.4. He had normal white blood cell count of 8500, hemoglobin was 12.6, hematocrit 38.4, and platelet count was 195,000. Urinalysis was not done today. Films of the chest x-ray were reviewed by me on the PACS today. Today's films were reviewed by me, interpreted by me, and it was also compared with prior films available on the PACS. Compared to prior films, there are new bilateral mid and lower lobe pulmonary infiltrates suggestive of pneumonia versus pneumonitis. There were no pleural effusions seen. There is a left-sided pacemaker in place as well. A 12-lead EKG done in the emergency room was reviewed and interpreted by me. Per my interpretation, there is normal sinus rhythm with a rate of [address]-T changes. IMPRESSION: 1. Shortness of breath. 2. Hypoxemia. 3. Healthcare-associated pneumonia versus radiation pneumonitis. 4. Recurrent pleural effusions with PleurX catheter on the left. 5. Paroxysmal atrial fibrillation. 6. Hypothyroidism. 7. Hypertension. 8. Pacemaker placement. 9. Benign prostatic hypertrophy. PLAN: We will admit Mr. Hercules to the telemetry unit for close monitoring. His blood pressures seem to be stable at this time. He is in normal sinus rhythm. We will continue monitoring him closely. Meanwhile, we will maximize bronchodilator treatments, continue supplemental oxygen therapy, and after cultures are drawn, we will start him on empiric IV History And Physical [address] [address] NAME: VINICIUS HERCULES : 40 STATUS : ADM IN [facility]#: [id number] AGE: 76 ADM/REG DATE : 11/02/16 MR#: [id number] REPORT SERV DATE: 11/03/16 DICTATED BY: CHRISTOPH CORREIA DATE: 11/02/16 REPORT STATUS : Draft TRANSCRIBED BY: EMILIA DATE: 11/02/16 antibiotics for healthcare-associated pneumonia. We will also start him on IV steroids for pneumonitis, although I think it is unlikely that he may have radiation pneumonitis since his last radiation was in June. We will obtain Gram stain and if they are negative, we may discontinue IV antibiotics. Right now, he has no leukocytosis or any other indication of infection. We will check his procalcitonin, lactate, and other antigens as well. We will also check him for influenza A and B today. We will go ahead and consult Pulmonary Service with Dr. Andre to evaluate for PleurX catheter removal. He will certainly benefit from home O2 evaluation prior to his discharge home. We will also go ahead and check his thyroid function, but continue replacement therapy for now. He is on Xarelto, which we will be continuing. I have discussed the above plans with the patient. His questions were answered and he is agreeable to the above recommendations. Please see today's orders for details. Hospitalist Service will be following him during his stay here. /EMILIA Christoph Correia M.D. / [id number] CC: Adan Merchant M.D.
--- NOTE | ~2016-11-02 | EGD ---
EGD REPORT [facility] [address] [address] NAME: CHRISTIANO HERCULES : [birth year] STATUS : ADM IN PAT#: [id number] AGE: 76 ADM/REG DATE : 11/02/16 MR#: [id number] REPORT SERV DATE: 11/04/16 DICTATED BY: CHRISTOPHER DE SOUZA DATE: 11/04/16 REPORT STATUS : Draft [facility]: [facility] DATE: 11/04/16 Pulmonology Patient Name: Christiano Hercules Procedure Date: 11/04/2016 3:35 PM Date of : 1940 Attending MD: ASHLEY DE SOUZA MD Procedure Date No Time: 11/04/2016 Procedure: Bronchoscopy and left pleurX removal Indications: Left pleurX removal; Bilateral infiltrates Providers: ASHLEY DE SOUZA MD Referring MD: URSULA OSBORN MD, VEE Arora JR., MD Medicines: Lidocaine 2% 20 mL Complications: No immediate complications. Patient was instructed that he will be transferred to the ICU prior to the procedure. Procedure: Pre-Anesthesia Assessment: - ASA Grade Assessment: IV - A patient with severe systemic disease that is a constant threat to life. - A History and Physical has been performed. Patient meds and allergies have been reviewed. The risks and benefits of the procedure and the sedation options and risks were discussed with the patient. All questions were answered and informed consent was obtained. Patient identification and proposed procedure were verified prior to the procedure by the physician and the nurse in the pre-procedure area in the procedure room. Mental Status Examination: normal. Respiratory Examination: poor air movement and rhonchi. CV Examination: normal and RRR, no murmurs, no S3 or S4. ASA Grade Assessment: IV - A patient with severe systemic disease that is a constant threat to life. After reviewing the risks and benefits, the patient was deemed in satisfactory condition to undergo the procedure. The anesthesia plan was to use general anesthesia. Immediately prior to administration of medications, the patient was re-assessed for adequacy to receive sedatives. The heart rate, respiratory rate, oxygen saturations, blood pressure, adequacy of pulmonary ventilation, and response to care were monitored throughout the procedure. The physical status of the patient was re-assessed after the procedure. After obtaining informed consent, the Bronchoscope was introduced through the mouth, via the endotracheal tube (the patient was intubated for the procedure) and advanced to the tracheobronchial tree. The procedure EGD REPORT [address] [address] NAME: CHRISTIANO HERCULES : 40 STATUS : ADM IN [facility]#: [id number] AGE: 76 ADM/REG DATE : 11/02/16 MR#: [id number] REPORT SERV DATE: 11/04/16 DICTATED BY: CHRISTOPHER DE SOUZA DATE: 11/04/16 REPORT STATUS : Draft TRANSCRIBED BY: [employer] DATE: 11/04/16 was accomplished without difficulty. The patient tolerated the procedure well. Findings: Bronchoscopy The endotracheal tube is in good position. The visualized portion of the trachea is of normal caliber. The heather is sharp. The tracheobronchial tree was examined to at least the first subsegmental level. Bronchial mucosa and anatomy are normal; there are no endobronchial lesions, and no secretions. Bronchoalveolar lavage was performed in the right middle lobe of the lung and sent for cell count, cytology, bacterial culture, viral smears \T\ culture, and fungal and AFB analysis. 180 mL of fluid were instilled. 30 mL were returned. The return was blood-tinged and cellular. Fluoroscopically guided transbronchial brushings were obtained in the right lower lobe of the lung and sent for cell count, cytology, bacterial culture, viral smears \T\ culture, and fungal \T\ AFB analysis. Two samples were obtained. Transbronchial biopsies were performed in the right middle lobe and in the right lower lobe of the lung using forceps and sent for histopathology examination. The procedure was guided by fluoroscopy. Ten biopsy passes were performed. Five biopsy samples were obtained. Left pleurCX removal The patient was placed in the right lateral decubitus position with the ipsilateral arm above the patient's head. The patient's pleurX site was sterilized with chloraprep. Blunt dissection was performed using Carley forceps along the pleurX tract and the indwelling cuff was liberated. The left pleurX was easily removed and a gauze and tegaderm dressing was placed over the site. Impression: - The airway examination was normal. - Bronchoalveolar lavage was performed. - Fluoroscopically guided transbronchial brushings were obtained. - Transbronchial lung biopsies were performed. - Left pleurx removal Recommendation: - Await test results. - Post procedural CXR - Intubation orders - Consult CCM. Dr. Francois is aware. - I spoke with Ms. Destiney Hercules at length post procedure. She is aware that her has significant lung disease. Patient will likely require prolonged intubation. She voiced understanding. - Transfer patient to ICU Attending Participation: I personally performed the entire procedure. EGD REPORT [facility] [address] [place]. [address] NAME: CHRISTIANO HERCULES : 40 STATUS : ADM IN [facility]#: [id number] AGE: 76 ADM/REG DATE : 11/02/16 MR#: [id number] REPORT SERV DATE: 11/04/16 DICTATED BY: CHRISTOPHER DE SOUZA DATE: 11/04/16 REPORT STATUS : Draft TRANSCRIBED BY: [facility] DATE: 11/04/16 ASHLEY DE SOUZA MD 11/04/2016 5:27 PM This report has been signed electronically. Number of Addenda: 0 Note Initiated On: 11/04/2016 3:35 PM [address] [place] [address]
[~2016-11-02 16:55] MED LIST changes: +CORDARONE PO; +LOP25 PO; +ULTRAM50 PO; +XARELTO20 MG PO
[2016-11-02 17:18] LABS: BASOPHILS 0.5 %; BASOPHILS ABSOLUTE 0.04 10/3/uL (0.0-0.16); EOSINOPHILS 5.9 %; HEMATOCRIT 38.4 % (40.0-51.0); HEMOGLOBIN 12.6 g/dL (13.6-17.8); IMMATURE GRANULOCYTES 0.2 %; IMMATURE GRANULOCYTES ABSOLUTE 0.02 10/3/uL (0.0-0.11); LYMPHOCYTES 9.3 %; LYMPHOCYTES ABSOLUTE 0.79 10/3/uL (0.67-4.30); MEAN CORPUS HGB CONC 32.8 g/dL (32.0-36.0); MEAN CORPUSCULAR HEMOGLOB 29.2 pg (26.0-34.0); MEAN CORPUSCULAR VOLUME 88.9 fL (80-100); MEAN PLATELET VOLUME 8.6 fL (9.2-13.0); MONOCYTES 9.9 %; MONOCYTES ABSOLUTE 0.84 10/3/uL (0.21-1.20); NEUTROPHILS 74.2 %; NEUTROPHILS ABSOLUTE 6.32 10/3/uL (2.02-8.40); PLATELET COUNT 195 10/3/uL (150-400); RBC DISTRIBUTION WIDTH 14.2 % (12.0-16.0); RED CELL COUNT 4.32 10/6/uL (4.7-6.1)
[2016-11-02 17:20] LABS: MANUAL DIFF NO %; WHITE BLOOD CELLS 8.5 10/3/uL (4.5-10.5)
[2016-11-02 17:26] LABS: INTERNATIONAL NORMAL RATI 1.3 UNITS (-); PARTIAL THROMBO TIME 35.1 SEC (22.5-37.2); PROTIME (NOT ORD) 15.8 SEC (12.0-14.5)
[2016-11-02 17:34] LABS: BUN (BLOOD UREA NITROGEN) 15 MG/DL (6-23); CALCIUM, SERUM 9.2 MG/DL (8.5-10.4); CHEST PAIN PROFILE TAT 0 Hrs 20 Mins; CHLORIDE, SERUM 104 MMOL/L (96-112); CO2 (CARBON DIOXIDE) 26 MMOL/L (24-34); CREATININE 0.85 MG/DL (0.70-1.30); GFR AFRICAN AMERICAN 98 ML/MIN (>=60); GFR NON AFRICAN AMERICAN 85 ML/MIN (>=60); GLUCOSE, SERUM 94 MG/DL (60-99); POTASSIUM, SERUM 3.7 MMOL/L (3.5-5.3); SODIUM, SERUM 139 MMOL/L (135-148); TROPONIN I <0.02 NG/ML (<0.05)
[2016-11-02 20:12] LABS: BE (BASE EXCESS) 0.7 MEQ/L (0 +/- 2.5); HCO3 (ACTUAL BICARBONATE) 23.7 MEQ/L (23-27); HEMOBLOGIN CONTENT 12.7 G/DL (14-18); INSTRUMENT SERIAL # 8087; METHEMOGLOBIN 0.4 % (0-3); O2 CONTENT 15.5 VOL% (18-24); OPERATOR ID 33214; PCO2 (CO2 TENSION) 33 MMHG (35-45); PO2 (O2 TENSION) 56 MMHG (79-93); SAMPLE Arterial; pH 7.48 (7.37-7.43)
[2016-11-03 04:59] LABS: BASOPHILS 0.2 %; BASOPHILS ABSOLUTE 0.01 10/3/uL (0.0-0.16); EOSINOPHILS 0.2 %; EOSINOPHILS ABSOLUTE 0.01 10/3/uL (0.0-0.53); HEMATOCRIT 36.1 % (40.0-51.0); IMMATURE GRANULOCYTES 0.3 %; IMMATURE GRANULOCYTES ABSOLUTE 0.02 10/3/uL (0.0-0.11); LYMPHOCYTES 6.8 %; LYMPHOCYTES ABSOLUTE 0.45 10/3/uL (0.67-4.30); MEAN CORPUS HGB CONC 33.2 g/dL (32.0-36.0); MEAN CORPUSCULAR HEMOGLOB 29.3 pg (26.0-34.0); MEAN CORPUSCULAR VOLUME 88.3 fL (80-100); MEAN PLATELET VOLUME 8.5 fL (9.2-13.0); MONOCYTES 1.4 %; MONOCYTES ABSOLUTE 0.09 10/3/uL (0.21-1.20); NEUTROPHILS 91.1 %; PLATELET COUNT 216 10/3/uL (150-400); RBC DISTRIBUTION WIDTH 14.2 % (12.0-16.0); RED CELL COUNT 4.09 10/6/uL (4.7-6.1); WHITE BLOOD CELLS 6.6 10/3/uL (4.5-10.5)
[2016-11-03 05:04] LABS: MANUAL DIFF NO %
[2016-11-03 05:20] LABS: BUN (BLOOD UREA NITROGEN) 16 MG/DL (6-23); CALCIUM, SERUM 9.4 MG/DL (8.5-10.4); CHLORIDE, SERUM 104 MMOL/L (96-112); CO2 (CARBON DIOXIDE) 26 MMOL/L (24-34); CREATININE 0.91 MG/DL (0.70-1.30); GFR AFRICAN AMERICAN 95 ML/MIN (>=60); GFR NON AFRICAN AMERICAN 82 ML/MIN (>=60); PHOSPHORUS, SERUM 2.2 MG/DL (2.5-4.5); POTASSIUM, SERUM 4.4 MMOL/L (3.5-5.3); SODIUM, SERUM 136 MMOL/L (135-148)
[2016-11-03 05:21] LABS: GLUCOSE, SERUM 164 MG/DL (60-99)
[2016-11-03 09:43] LABS: ALKALINE PHOSPHATASE 82 U/L (45-117); DIRECT BILIRUBIN 0.1 MG/DL (0.0-0.4); INDIRECT BILIRUBIN(NOT ORDER) 0.3 MG/DL (0.1-0.9); SGOT(AST) 25 U/L (5-40); SGPT(ALT) 32 U/L (5-65); TOTAL BILIRUBIN 0.4 MG/DL (0-1.2); TOTAL PROTEIN 6.7 G/DL (6.0-8.5)
[2016-11-03 09:44] LABS: ALBUMIN 2.7 G/DL (3.5-5.0)
[2016-11-03 10:03] LABS: INFLUENZA A SCREEN NEGATIVE (NEGATIVE); INFLUENZA B SCREEN NEGATIVE (NEGATIVE)
[2016-11-04 06:12] LABS: INTERNATIONAL NORMAL RATI 1.2 UNITS (-); PARTIAL THROMBO TIME 31.4 SEC (22.5-37.2); PROTIME (NOT ORD) 15.4 SEC (12.0-14.5)
[2016-11-04 06:13] LABS: BASOPHILS 0.1 %; BASOPHILS ABSOLUTE 0.01 10/3/uL (0.0-0.16); EOSINOPHILS 0 %; HEMATOCRIT 33.6 % (40.0-51.0); HEMOGLOBIN 11.1 g/dL (13.6-17.8); IMMATURE GRANULOCYTES 0.2 %; IMMATURE GRANULOCYTES ABSOLUTE 0.03 10/3/uL (0.0-0.11); LYMPHOCYTES 2.9 %; LYMPHOCYTES ABSOLUTE 0.38 10/3/uL (0.67-4.30); MEAN CORPUSCULAR HEMOGLOB 29.1 pg (26.0-34.0); MEAN PLATELET VOLUME 8.6 fL (9.2-13.0); MONOCYTES ABSOLUTE 0.39 10/3/uL (0.21-1.20); NEUTROPHILS 93.8 %; NEUTROPHILS ABSOLUTE 12.32 10/3/uL (2.02-8.40); PLATELET COUNT 222 10/3/uL (150-400); RBC DISTRIBUTION WIDTH 14.4 % (12.0-16.0); RED CELL COUNT 3.82 10/6/uL (4.7-6.1)
[2016-11-04 06:16] LABS: MANUAL DIFF NO %; WHITE BLOOD CELLS 13.1 10/3/uL (4.5-10.5)
[2016-11-04 06:18] LABS: BUN (BLOOD UREA NITROGEN) 17 MG/DL (6-23); C-REACTIVE PROTEIN 84.1 MG/L (<8.0); CALCIUM, SERUM 9.3 MG/DL (8.5-10.4); CHLORIDE, SERUM 106 MMOL/L (96-112); CO2 (CARBON DIOXIDE) 24 MMOL/L (24-34); GFR AFRICAN AMERICAN 96 ML/MIN (>=60); GFR NON AFRICAN AMERICAN 83 ML/MIN (>=60); GLUCOSE, SERUM 190 MG/DL (60-99); SODIUM, SERUM 138 MMOL/L (135-148)
[2016-11-04 06:56] LABS: SED RATE 26 MM/HR (0-15)
[2016-11-04 20:23] LABS: BD FL LYMPH (NOT ORD) 17 %; BD FL SOURCE (NOT ORD) BAL; BF BASO (NOT OF) 0 %; BF LARGE MONONUCLEAR 52 %; BF TOTAL CELL CT (NOT ORD 332 /MM3; BODY FLUID EOS (NOT ORD) 6 %; BODY FLUID RBC (NOT ORD) 10000 /MM3; BODY FLUID SEG (NOT ORD) 25 %
[2016-11-04 20:23] LABS: ALLENS TEST Pos; CARBOXYHEMOGLOBIN 0.3 % (0-3); HCO3 (ACTUAL BICARBONATE) 25.1 MEQ/L (23-27); HEMOBLOGIN CONTENT 11.7 G/DL (14-18); INSTRUMENT SERIAL # 8083; METHEMOGLOBIN 0.5 % (0-3); MODE CMV; O2 CONTENT 16.6 VOL% (18-24); OPERATOR ID 33449; PCO2 (CO2 TENSION) 38 MMHG (35-45); PO2 (O2 TENSION) 185 MMHG (79-93); SAMPLE Arterial; TIDAL VOLUME 500 ML; pH 7.44 (7.37-7.43)
[2016-11-05 04:57] LABS: BASOPHILS 0 %; EOSINOPHILS 0 %; HEMATOCRIT 33.5 % (40.0-51.0); HEMOGLOBIN 10.7 g/dL (13.6-17.8); IMMATURE GRANULOCYTES 0.4 %; IMMATURE GRANULOCYTES ABSOLUTE 0.05 10/3/uL (0.0-0.11); LYMPHOCYTES 3.3 %; LYMPHOCYTES ABSOLUTE 0.45 10/3/uL (0.67-4.30); MEAN CORPUS HGB CONC 31.9 g/dL (32.0-36.0); MEAN CORPUSCULAR HEMOGLOB 28.5 pg (26.0-34.0); MEAN CORPUSCULAR VOLUME 89.3 fL (80-100); MEAN PLATELET VOLUME 8.8 fL (9.2-13.0); MONOCYTES 2.9 %; NEUTROPHILS 93.4 %; NEUTROPHILS ABSOLUTE 12.82 10/3/uL (2.02-8.40); PLATELET COUNT 199 10/3/uL (150-400); RBC DISTRIBUTION WIDTH 15.1 % (12.0-16.0); RED CELL COUNT 3.75 10/6/uL (4.7-6.1); WHITE BLOOD CELLS 13.7 10/3/uL (4.5-10.5)
[2016-11-05 05:04] LABS: CALCIUM, SERUM 8.7 MG/DL (8.5-10.4); CHLORIDE, SERUM 104 MMOL/L (96-112); CO2 (CARBON DIOXIDE) 21 MMOL/L (24-34); SODIUM, SERUM 139 MMOL/L (135-148)
[2016-11-05 05:06] LABS: BUN (BLOOD UREA NITROGEN) 27 MG/DL (6-23); CREATININE 1.82 MG/DL (0.70-1.30); GFR AFRICAN AMERICAN 41 ML/MIN (>=60); GFR NON AFRICAN AMERICAN 35 ML/MIN (>=60); GLUCOSE, SERUM 265 MG/DL (60-99); MANUAL DIFF NO %
[2016-11-05 08:31] LABS: INSTRUMENT SERIAL # 8083; pH 7.46 (7.37-7.43)
[2016-11-05 08:32] LABS: ALLENS TEST Pos; BE (BASE EXCESS) -2.5 MEQ/L (0 +/- 2.5); CARBOXYHEMOGLOBIN 0.6 % (0-3); HCO3 (ACTUAL BICARBONATE) 20.2 MEQ/L (23-27); HEMOBLOGIN CONTENT 12.1 G/DL (14-18); METHEMOGLOBIN 0.5 % (0-3); O2 CONTENT 14.6 VOL% (18-24); PCO2 (CO2 TENSION) 29 MMHG (35-45); PO2 (O2 TENSION) 52 MMHG (79-93); SAMPLE Arterial; TIDAL VOLUME 500 ML
[2016-11-05 13:08] LABS: PROCALCITONIN 0.14 ng/mL (<0.5)
[2016-11-05 21:45] LABS: POTASSIUM, SERUM 3.9 MMOL/L (3.5-5.3)
[2016-11-06 03:38] LABS: BE (BASE EXCESS) -3.4 MEQ/L (0 +/- 2.5); CARBOXYHEMOGLOBIN 0.3 % (0-3); HCO3 (ACTUAL BICARBONATE) 24.5 MEQ/L (23-27); HEMOBLOGIN CONTENT 12.6 G/DL (14-18); INSTRUMENT SERIAL # 8083; METHEMOGLOBIN 0.6 % (0-3); MODE CMV; O2 CONTENT 16.5 VOL% (18-24); OPERATOR ID 16469; PCO2 (CO2 TENSION) 58 MMHG (35-45); PO2 (O2 TENSION) 79 MMHG (79-93); SAMPLE Arterial; TIDAL VOLUME 500 ML; pH 7.25 (7.37-7.43)
[2016-11-06 04:32] LABS: BASOPHILS 0 %; EOSINOPHILS 0 %; HEMATOCRIT 36.1 % (40.0-51.0); HEMOGLOBIN 11.6 g/dL (13.6-17.8); IMMATURE GRANULOCYTES 0.5 %; IMMATURE GRANULOCYTES ABSOLUTE 0.04 10/3/uL (0.0-0.11); LYMPHOCYTES 1.4 %; LYMPHOCYTES ABSOLUTE 0.12 10/3/uL (0.67-4.30); MANUAL DIFF NO %; MEAN CORPUS HGB CONC 32.1 g/dL (32.0-36.0); MEAN CORPUSCULAR HEMOGLOB 28.9 pg (26.0-34.0); MEAN PLATELET VOLUME 9.4 fL (9.2-13.0); MONOCYTES 3.6 %; MONOCYTES ABSOLUTE 0.32 10/3/uL (0.21-1.20); NEUTROPHILS 94.5 %; NEUTROPHILS ABSOLUTE 8.31 10/3/uL (2.02-8.40); PLATELET COUNT 150 10/3/uL (150-400); RBC DISTRIBUTION WIDTH 15.1 % (12.0-16.0); RED CELL COUNT 4.01 10/6/uL (4.7-6.1); WHITE BLOOD CELLS 8.8 10/3/uL (4.5-10.5)
[2016-11-06 04:46] LABS: BUN (BLOOD UREA NITROGEN) 39 MG/DL (6-23); CHLORIDE, SERUM 107 MMOL/L (96-112); CO2 (CARBON DIOXIDE) 24 MMOL/L (24-34); CREATININE 1.81 MG/DL (0.70-1.30); GFR AFRICAN AMERICAN 41 ML/MIN (>=60); GFR NON AFRICAN AMERICAN 36 ML/MIN (>=60); GLUCOSE, SERUM 208 MG/DL (60-99); PHOSPHORUS, SERUM 4.3 MG/DL (2.5-4.5); POTASSIUM, SERUM 4.2 MMOL/L (3.5-5.3); SODIUM, SERUM 138 MMOL/L (135-148)
[2016-11-06 15:09] LABS: BE (BASE EXCESS) 0.8 MEQ/L (0 +/- 2.5); CARBOXYHEMOGLOBIN 0.3 % (0-3); HCO3 (ACTUAL BICARBONATE) 24.6 MEQ/L (23-27); HEMOBLOGIN CONTENT 12.4 G/DL (14-18); INSTRUMENT SERIAL # 8083; METHEMOGLOBIN 0.5 % (0-3); MODE CMV; O2 CONTENT 15.1 VOL% (18-24); PCO2 (CO2 TENSION) 37 MMHG (35-45); PO2 (O2 TENSION) 53 MMHG (79-93); SAMPLE Arterial; TIDAL VOLUME 500 ML; pH 7.44 (7.37-7.43)
[2016-11-07 03:46] LABS: INSTRUMENT SERIAL # 8083; PCO2 (CO2 TENSION) 75 MMHG (35-45); pH 7.17 (7.37-7.43)
[2016-11-07 03:47] LABS: ALLENS TEST Pos; BE (BASE EXCESS) -3.6 MEQ/L (0 +/- 2.5); CARBOXYHEMOGLOBIN 0.4 % (0-3); HCO3 (ACTUAL BICARBONATE) 26.5 MEQ/L (23-27); HEMOBLOGIN CONTENT 13.1 G/DL (14-18); METHEMOGLOBIN 0.6 % (0-3); MODE CMV; O2 CONTENT 17.9 VOL% (18-24); OPERATOR ID 13861; PO2 (O2 TENSION) 112 MMHG (79-93); SAMPLE Arterial; TIDAL VOLUME 500 ML
[2016-11-07 04:29] LABS: BASOPHILS 0 %; EOSINOPHILS 0 %; HEMATOCRIT 36.2 % (40.0-51.0); HEMOGLOBIN 11.5 g/dL (13.6-17.8); IMMATURE GRANULOCYTES 0.4 %; IMMATURE GRANULOCYTES ABSOLUTE 0.03 10/3/uL (0.0-0.11); LYMPHOCYTES 2.7 %; LYMPHOCYTES ABSOLUTE 0.21 10/3/uL (0.67-4.30); MEAN CORPUS HGB CONC 31.8 g/dL (32.0-36.0); MEAN CORPUSCULAR HEMOGLOB 28.8 pg (26.0-34.0); MEAN CORPUSCULAR VOLUME 90.7 fL (80-100); MEAN PLATELET VOLUME 9.5 fL (9.2-13.0); MONOCYTES 2.6 %; NEUTROPHILS 94.3 %; NEUTROPHILS ABSOLUTE 7.22 10/3/uL (2.02-8.40); PLATELET COUNT 153 10/3/uL (150-400); RBC DISTRIBUTION WIDTH 14.9 % (12.0-16.0); RED CELL COUNT 3.99 10/6/uL (4.7-6.1); WHITE BLOOD CELLS 7.7 10/3/uL (4.5-10.5)
[2016-11-07 04:31] LABS: MANUAL DIFF NO %
[2016-11-07 04:44] LABS: A/G RATIO 0.6 (0.7-1.9); ALBUMIN 2.4 G/DL (3.5-5.0); ALKALINE PHOSPHATASE 74 U/L (45-117); CALCIUM, SERUM 9.1 MG/DL (8.5-10.4); CHLORIDE, SERUM 107 MMOL/L (96-112); CO2 (CARBON DIOXIDE) 27 MMOL/L (24-34); CREATININE 2.05 MG/DL (0.70-1.30); GFR AFRICAN AMERICAN 35 ML/MIN (>=60); GFR NON AFRICAN AMERICAN 31 ML/MIN (>=60); GLOBULIN 3.7 G/DL (2.5-4.1); GLUCOSE, SERUM 208 MG/DL (60-99); POTASSIUM, SERUM 4.3 MMOL/L (3.5-5.3); SGOT(AST) 28 U/L (5-40); SGPT(ALT) 26 U/L (5-65); SODIUM, SERUM 141 MMOL/L (135-148); TOTAL BILIRUBIN 0.3 MG/DL (0-1.2); TOTAL PROTEIN 6.1 G/DL (6.0-8.5)
[2016-11-07 04:45] LABS: BUN (BLOOD UREA NITROGEN) 60 MG/DL (6-23)
[2016-11-07 09:04] LABS: ALLENS TEST Pos; BE (BASE EXCESS) -1.8 MEQ/L (0 +/- 2.5); HCO3 (ACTUAL BICARBONATE) 25.2 MEQ/L (23-27); HEMOBLOGIN CONTENT 12.1 G/DL (14-18); INSTRUMENT SERIAL # 8083; METHEMOGLOBIN 0.6 % (0-3); MODE APRV; O2 CONTENT 16.7 VOL% (18-24); OPERATOR ID 14382; PCO2 (CO2 TENSION) 53 MMHG (35-45); PO2 (O2 TENSION) 115 MMHG (79-93); SAMPLE Arterial
== END 2016-11-08 08:58 | disposition expired | DRG 166 ==
LOC: ER 16:55 → 6NO 21:22 → SDC/OF 11-04 17:06 → MIC 11-04 18:46
PROVIDERS: Emergency Medicine; Hospitalist; Internal Medicine; Internal Medicine Pulmonary Disease; Nurse Practitioner Acute Care
PROC: 5A1945Z Respiratory Ventilation, 24-96 Consecutive Hours (ICD-10-PCS; principal; 2016-11-02)
PROC: 0BH17EZ Insertion of Endotracheal Airway into Trachea, Via Natural or Artificial Opening (ICD-10-PCS; 2016-11-02)
PROC: 0BBF8ZX Excision of Right Lower Lung Lobe, Via Natural or Artificial Opening Endoscopic, Diagnostic (ICD-10-PCS; 2016-11-04 15:00)
PROC: 0BBD8ZX Excision of Right Middle Lung Lobe, Via Natural or Artificial Opening Endoscopic, Diagnostic (ICD-10-PCS; 2016-11-04 15:00)
DX: J96.01 Acute respiratory failure with hypoxia (principal); J69.0 Pneumonitis due to inhalation of food and vomit; G93.40 Encephalopathy, unspecified; N17.9 Acute kidney failure, unspecified; J90 Pleural effusion, not elsewhere classified; J44.9 Chronic obstructive pulmonary disease, unspecified; E87.2 Acidosis; C77.1 Secondary and unspecified malignant neoplasm of intrathoracic lymph nodes; I48.0 Paroxysmal atrial fibrillation; Z51.5 Encounter for palliative care; Z92.3 Personal history of irradiation; E03.9 Hypothyroidism, unspecified; I10 Essential (primary) hypertension; N40.0 Benign prostatic hyperplasia without lower urinary tract symptoms; K21.9 Gastro-esophageal reflux disease without esophagitis; I48.2 Chronic atrial fibrillation; Z66 Do not resuscitate; Z92.21 Personal history of antineoplastic chemotherapy; Z79.899 Other long term (current) drug therapy; Z85.118 Personal history of other malignant neoplasm of bronchus and lung; Z95.0 Presence of cardiac pacemaker; Z90.2 Acquired absence of lung [part of]; Z87.891 Personal history of nicotine dependence
CPT/HCPCS: 31720; 36600; 71010; 71020; 71275; 74000; 80048; 80053; 80076; 80202; 82805; 82962; 83605; 83735; 83880; 84100; 84132; 84145; 84443; 84484; 85025; 85610; 85652; 85730; 86140; 87015; 87040; 87070; 87101; 87102; 87116; 87205; 87252; 87449; 87641; 87804; 88112; 88305; 89051; 93005; 94002; 94003; 94640; 96374; 99285; A9270-GY; C1729; C8929; C9113; G0463; J0692; J1940; J2370; J2930; J3010; J3370; J3475; P9047; Q9957; Q9967